=== PATIENT | male | born 1950 | race Caucasian/White ===

== ENCOUNTER 2022-02-15 07:49 | Day surgery (SDC) | payer OTHER ==
[~2022-02-15] VITALS: Ht 166.4 cm; Wt 59.9 kg
[2022-02-15] MEDS ORDERED: MIDAZOLAM 5 MG/5 ML VIAL ONE (09:59)
[2022-02-15] MEDS ORDERED: fentaNYL citrate 0.05 MG/ML VIAL ONE (09:59)
[2022-02-15] MEDS ORDERED: MIDAZOLAM 2 MG/2 ML VIAL IVP ONE (10:50)
== END 2022-02-15 10:50 | disposition home or self-care (01) ==
LOC: MOR 07:49 → MMU 07:50 → MOR 10:50
PROVIDERS: ATTEND Internal Medicine Gastroenterology
DX: R05.3 Chronic cough (principal); K20.90 Esophagitis, unspecified without bleeding; K44.9 Diaphragmatic hernia without obstruction or gangrene; K64.9 Unspecified hemorrhoids; Z87.891 Personal history of nicotine dependence; I10 Essential (primary) hypertension; E11.9 Type 2 diabetes mellitus without complications; Z88.1 Allergy status to other antibiotic agents; Z79.82 Long term (current) use of aspirin; Z79.84 Long term (current) use of oral hypoglycemic drugs; Z79.899 Other long term (current) drug therapy
CPT/HCPCS: 43235; 87426; J2250; J3010